=== PATIENT | female | born 1970 | race Caucasian/White ===

== ENCOUNTER 2021-02-28 22:18 | Emergency (ER) | payer BC ==
[2021-02-28] MEDS ORDERED: Sodium Chloride 0.9% 2.5 ML Syringe FLUSH PRN (23:31)
[2021-02-28] MEDS ORDERED: Sodium Chloride 0.9% 10 ML Syringe FLUSH PRN (23:31)
--- NOTE | 2021-02-28 23:50 | CR ---
INDICATION: Cough TECHNIQUE: PA and lateral views of the chest COMPARISON: None FINDINGS: The lungs are clear. There is no pleural effusion or pneumothorax. The cardiomediastinal silhouette is normal. The osseous structures are unremarkable. IMPRESSION: No acute intrathoracic process. Dictated by Allison Jacobo MD @ 02/28/2021 11:48:55 PM (Electronically Signed)
[2021-03-01 00:19] LABS: CARBON DIOXIDE,CO2 27.6 mmol/L (21.0-32.0)
--- NOTE | 2021-03-01 00:40 | EDM.PDOC ---
ED HPI GENERAL MEDICAL PROBLEM - General Chief Complaint: Respiratory Problem Stated Complaint: SOB Time Seen by Provider: 02/28/21 23:00 - History of Present Illness INITIAL COMMENTS - FREE TEXT/NARRATIVE: HISTORY AND PHYSICAL: History of present illness: This is a 50-year-old female with no history of hypertension, diabetes, liver, lung, kidney problems who presents ER today secondary to URI symptoms, nasal congestion, headaches, cough, congestion, shortness of breath x1 to 2 days. Patient recently received her mandated Covid vaccination which she is extremely upset about having to be forced to do. Patient reports shortly after receiving her vaccination she started having symptoms consistent with a URI infection. Patient reports has had tactile fevers, shakes, chills. Patient reports that she has had episodes of nausea with decreased p.o. intake. Patient reports that she is had both diarrhea and constipation. Patient denies any dysuria, frequency, urgency. 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 Patient denies any hemoptysis or ear pain. Patient reports that she is to have a history of frequent sinus infections however she had sinus surgery and has not had any sinus infections for the last 2 years. Patient was concerned because she started having the symptoms shortly after receiving her Covid vaccination. Review of systems: As per history of present illness and below otherwise all systems reviewed and negative. Past medical history: As per history of present illness and as reviewed below otherwise noncontributory. Surgical history: As per history of present illness and as reviewed below otherwise noncontributory. Social history: No reported history of drug abuse. Family history: As per history of present illness and as reviewed below otherwise noncontributory. Physical exam: This patient was seen and evaluated during the 2019 SARS-CoV-2 novel coronavirus pandemic period. Community viral transmission is ongoing at time of this encounter and the emergency department is operating under pandemic response procedures. Constitutional: Patient is oriented to person, place, and time. Appears well- developed and well-nourished. No distress. HEENT: Moist mucous membranes Head: Normocephalic and atraumatic Eyes: Right eye exhibits no discharge. Left eye exhibits no discharge. No scleral icterus Neck: Normal range of motion. No tracheal deviation present. Cardiovascular: Normal rate and regular rhythm. Pulmonary: Effort normal, no respiratory distress. Abdominal: No distention Musculoskeletal: Normal range of motion Neurologic: Alert and oriented to person, place and time. Skin: [place], warm and dry. Psychiatric: Normal mood and affect. Behavior is normal. Judgment and thought content normal. Nursing note and vital signs have been reviewed Diagnostics: Covid test positive in the ED. CT of the chest will be ordered secondary to history of DVT and Covid positive. EKG February 28, 2021 at 11 PM EKG: As interpreted by ER physician: Mac: Nonspecific ST-T wave abnormalities Normal axis No evidence of ST elevation [place] Normal sinus rhythm heart rate of 64 Chest Xray: Normal cardiac silhouette No infiltrates or effusions identified. No PTX No evidence of acute bony fracture. As interpreted by ER MD: [employer]: [] Assessment and plan: 50-year-old female who presents ER today secondary to URI symptoms, shortness of breath, history of DVT and who is Covid positive here in the ED. Patient will have labs evaluated in ER occluding CBC, CMP. Patient will have a CTA of her chest. Patient's EKG Patient has CTA of her chest today which not reveal any evidence of pulmonary embolism. Did show increased groundglass appearance in her lungs consistent with viral pneumonia which is likely from her coronavirus infection. I have discussed the results with the patient. Patient will be a candidate for Regeneron therapy given her obesity. Patient will have form filled out and someone will call her tomorrow to assist with getting her into the infusion center per her request. I have discussed with the patient the risks and benefits of being treated with Regeneron. Patient understands the risks of coronavirus infection and the need to return the ED if she becomes more short of breath. Definitive disposition and diagnosis as appropriate pending reevaluation and review of above. Bilateral Chest Pain Score (Numeric/FACES): 9 - Related Data Allergies Allergy/AdvReac Type Severity Reaction Status Date / Time dexamethasone Allergy Mild Rash Verified 02/28/21 22:35 vancomycin Allergy Rash Verified 02/28/21 22:36 Past Medical History Respiratory History: Reports: Asthma - Infectious Disease History Infectious Disease History: Reports: Chicken Pox Social & Family History - Family History Family Medical History: No Pertinent Family History - Tobacco Use Tobacco Use Status *Q: Never Tobacco User - Recreational Drug Use Recreational Drug Use: No ED ROS GENERAL - Review of Systems Review Of Systems: See Below ED EXAM, GENERAL - Physical Exam Exam: See Below Course - Vital Signs Last Recorded V/S: Last Vital Signs Temp 97.4 F 02/28/21 22:36 Pulse 67 03/01/21 01:33 Resp 20 03/01/21 01:33 BP 123/75 03/01/21 01:33 Pulse Ox 96 03/01/21 01:33 - Orders/Labs/Meds Orders: Active Orders 24 hr Category Date Time Status Sodium Chloride 0.9% [Saline Flush] Med 02/28/21 23:31 Active 10 ml FLUSH ASDIRECTED PRN Sodium Chloride 0.9% [Saline Flush] Med 02/28/21 23:31 Active 2.5 ml FLUSH ASDIRECTED PRN Saline Lock Insert [OM.PC] Stat Oth 02/28/21 23:32 Ordered Medication Orders Sodium Chloride (Sodium Chloride 0.9% 10 Ml Syringe) 10 ml FLUSH ASDIRECTED PRN PRN Reason: Keep Vein Open Sodium Chloride (Sodium Chloride 0.9% 2.5 Ml Syringe) 2.5 ml FLUSH ASDIRECTED PRN PRN Reason: Keep Vein Open Labs: Laboratory Tests 02/28/21 02/28/21 02/28/21 Range/Units 23:03 23:55 23:55 WBC 6.21 (4.0-11.0) K/uL RBC 4.62 (4.30-5.90) M/uL Hgb 14.3 (12.0-16.0) g/dL Hct 42.4 (36.0-46.0) % MCV 91.8 (80.0-98.0) fL MCH 31.0 (27.0-32.0) pg MCHC 33.7 (31.0-37.0) g/dL RDW Std Deviation 42.9 (28.0-62.0) fl RDW Coeff of Johnny 13 (11.0-15.0) % Plt Count 222 (150-400) K/uL MPV 10.30 (7.40-12.00) fL Neut % (Auto) 69.8 (48.0-80.0) % Lymph % (Auto) 17.9 (16.0-40.0) % [place] % (Auto) 12.1 (0.0-15.0) % Eos % (Auto) 0.0 (0.0-7.0) % Baso % (Auto) 0.2 (0.0-1.5) % Neut # (Auto) 4.3 (1.4-5.7) K/uL Lymph # (Auto) 1.1 (0.6-2.4) K/uL [place] # (Auto) 0.8 (0.0-0.8) K/uL Eos # (Auto) 0.0 (0.0-0.7) K/uL Baso # (Auto) 0.0 (0.0-0.1) K/uL Nucleated RBC % 0.0 /100WBC Nucleated RBCs # 0 K/uL Sodium 136 (136-145) mmol/L Potassium 4.0 (3.5-5.1) mmol/L Chloride 100 (98-107) mmol/L Carbon Dioxide 27.6 (21.0-32.0) mmol/L BUN 15 (7.0-18.0) mg/dL Creatinine 1.2 H (0.6-1.0) mg/dL Est Cr Clr Drug Dosing 54.54 mL/min Estimated GFR (MDRD) 47.6 ml/min Glucose 107 H (74-106) mg/dL Calcium 8.9 (8.5-10.1) mg/dL Total Bilirubin 0.4 (0.2-1.0) mg/dL AST 60 H (15-37) IU/L ALT 67 H (14-63) IU/L Alkaline Phosphatase 94 (46-116) U/L Total Protein 8.0 (6.4-8.2) g/dL Albumin 3.6 (3.4-5.0) g/dL Globulin 4.4 H (2.6-4.0) g/dL Albumin/Globulin Ratio 0.8 L (0.9-1.6) SARS-CoV-2 RNA (ABRIL) POSITIVE H (NEGATIVE) Meds: Medications Generic Name Dose Route Start Last Admin Trade Name Freq PRN Reason Stop Dose Admin Sodium Chloride 10 ml 02/28/21 23:31 Sodium Chloride 0.9% 10 Ml Syringe FLUSH ASDIRECTED PRN Keep Vein Open Sodium Chloride 2.5 ml 02/28/21 23:31 Sodium Chloride 0.9% 2.5 Ml Syringe FLUSH ASDIRECTED PRN Keep Vein Open Discontinued Medications Generic Name Dose Route Start Last Admin Trade Name Jeb PRN Reason Stop Dose Admin Guaifenesin/Codeine Phosphate 10 ml 03/01/21 01:39 Codeine/Guaifenesin 10-100 Mg/5 Ml Syrup 5 Ml Cup PO 03/01/21 01:40 ONETIME ONE Iopamidol 75 ml 03/01/21 00:50 03/01/21 00:51 Iopamidol 755 Mg/Ml 500 Ml Multipack Bottle IVPUSH 03/01/21 00:51 75 ml ONETIME STA Administration Departure - Departure Time of Disposition: 01:42 Disposition: Home, Self-Care 01 Condition: Good Clinical Impression: COVID-19 virus infection, Pneumonia due to COVID-19 virus - Discharge Information Instructions: COVID-19 Frequently Asked Questions, 10 Things You Can Do to Manage Your COVID-19 Symptoms at Home - [facility] (10/26/2020), COVID-19: Quarantine vs. Isolation - [facility] (03/29/2020) Referrals: PCP,None [Primary Care Provider] - Forms: ED Department Discharge Additional Instructions: Your seen and evaluated in ER today secondary to shortness of breath. Your Covid test in emergency department was positive. The CTA that we obtained did not reveal any evidence of pulmonary clots however does show inflammation in your lungs consistent with Covid pneumonia. You will need to quarantine. You will need to get plenty rest and plenty of liquids. Please return to the ED if you start start developing increasing shortness of breath. Please try to obtain a pulse oximeter from the pharmacy so he can follow your oxygen level. If your oxygen level should drop below 90%, you need to return to the ED for reevaluation. You have been placed on the list for Regeneron infusion. 1. Your COVID-19 screening is positive. That means you do have the coronavirus and you are considered contagious. Your vital signs and oxygen saturation are well enough that you were able to monitor your symptoms at home. Continue to monitor for trouble breathing, new confusion or inability to arouse, bluish lips or face or any of the other symptoms we discussed -if this occurs please return to the emergency room. 2. Please self quarantine over the next 10 days. Inform any persons that you have been in contact with since you started becoming symptomatic that you have tested positive; they should be made aware and take the appropriate steps as needed. 3. You can take NyQuil during the evening to help get a restful night sleep. May alternate Tylenol and ibuprofen as needed for pain and fever management. 4. The [facility] department will be calling you and following up with you. The [employer] [facility] Hotline phone number , They are open Thursday - Thursday 7am - 7pm. Follow up with your primary care provider for re-evaluation and re-testing after the 10 day quarantine and discuss when you should be seen. The following information is given to patients seen in the emergency department who are being discharged to home. This information is to outline your options for follow-up care. We provide all patients seen in our emergency department with a follow-up referral. The need for follow-up, as well as the timing and circumstances, are variable depending upon the specifics of your emergency department visit. If you don't have a primary care physician on staff, we will provide you with a referral. We always advise you to contact your personal physician following an emergency department visit to inform them of the circumstance of the visit and for follow-up with them and/or the need for any referrals to a consulting specialist. The emergency department will also refer you to a specialist when appropriate. This referral assures that you have the opportunity for follow-up care with a specialist. All of these measure are taken in an effort to provide you with optimal care, which includes your follow-up. Under all circumstances we always encourage you to contact your private physician who remains a resource for coordinating your care. When calling for follow-up care, please make the office aware that this follow-up is from your recent emergency room visit. If for any reason you are refused follow-up, please contact the [facility] Emergency Department at and asked to speak to the emergency department charge nurse. [facility] - [facility] [address] [place] [id number] [facility] [address] [place] [id number] Sepsis Event Note (ED) - Focused Exam Vital Signs: Vital Signs Temp Pulse Resp BP Pulse Ox 03/01/21 01:33 67 20 123/75 96 02/28/21 22:36 97.4 F 73 20 109/79 96 - My Orders Last 24 Hours: My Active Orders 02/28/21 23:31 Sodium Chloride 0.9% [Saline Flush] 10 ml FLUSH ASDIRECTED PRN Sodium Chloride 0.9% [Saline Flush] 2.5 ml FLUSH ASDIRECTED PRN 02/28/21 23:32 Saline Lock Insert [OM.PC] Stat - Assessment/Plan Last 24 Hours: My Active Orders 02/28/21 23:31 Sodium Chloride 0.9% [Saline Flush] 10 ml FLUSH ASDIRECTED PRN Sodium Chloride 0.9% [Saline Flush] 2.5 ml FLUSH ASDIRECTED PRN 02/28/21 23:32 Saline Lock Insert [OM.PC] Stat
[2021-03-01] MEDS ORDERED: Iopamidol 755 MG/ML 500 ML Multipack Bottle IVPUSH STA (00:50)
--- NOTE | 2021-03-01 01:21 | CT ---
INDICATION: Shortness of breath, history of deep venous thrombosis. TECHNIQUE: CT chest PE was acquired with 100 cc Omnipaque 350 IV contrast. COMPARISON: None. FINDINGS: Heart and vasculature: Contrast opacification of the pulmonary arterial tree is adequate. No sign of pulmonary embolism. Heart size is normal. Thoracic aorta and pulmonary artery are normal in caliber. Lungs and pleural: No pleural effusion or pneumothorax. Bilateral patchy ground-glass opacities throughout both lungs. Lymph nodes/mediastinum: No mediastinal, hilar, or axillary adenopathy. Chest wall: No masses. Upper abdomen: Normal. Bones: Unremarkable for age. IMPRESSION: 1. No evidence of pulmonary embolus. 2. Patchy bilateral ground-glass opacities suggestive of a viral pneumonia. Please note that all CT scans at this facility use dose modulation, iterative reconstruction, and/or weight-based dosing when appropriate to reduce radiation dose to as low as reasonably achievable. Dictated by Xavier Salamanca MD @ 03/01/2021 1:18:57 AM (Electronically Signed)
[2021-03-01] MEDS ORDERED: Codeine/guaiFENesin 10-100 MG/5 ML Syrup 5 ML Cup PO ONE (01:39)
== END 2021-03-01 02:03 | disposition home or self-care (01) ==
LOC: MW.ED 22:18
DX: U07.1 COVID-19 (principal); J12.82 Pneumonia due to coronavirus disease 2019; Z88.1 Allergy status to other antibiotic agents; Z88.8 Allergy status to other drugs, medicaments and biological substances
CPT/HCPCS: 36415; 71046; 71275; 80053; 85025; 87635; 93005; 99285; A9270; Q9967; U0002